=== PATIENT | female | born 1955 | race Caucasian/White ===

== ENCOUNTER 2023-11-07 13:01 | Inpatient (IN) | payer BC, MEDICAID ==
[~2023-11-07] VITALS: Ht 154.9 cm; Wt 43.5 kg
[2023-11-07 13:10] VITALS: BP_SYST 225; PULSE 75; RESP 22; TEMP 98.3; O2SAT 98
[2023-11-07] MEDS ORDERED: iohexoL 350 mgI/mL, 100 ML INFUS..BTL IV ONE (13:12)
[2023-11-07 13:56] LABS: BASOPHILS % (AUTO) 0.3 % (0.0-2.0); EOSINOPHILS # (AUTO) 0.1 K/uL (0.0-0.4); EOSINOPHILS % (AUTO) 1.4 % (0.0-4.0); HEMATOCRIT 28.8 % (36-48); HEMOGLOBIN 9.8 g/dL (12.0-16.0); LYMPHOCYTES # (AUTO) 2.1 K/uL (1.0-5.5); LYMPHOCYTES % (AUTO) 37.1 % (20.5-51.5); MEAN CORPUSCULAR HEMOGLOBIN 27 pg (27-31); MEAN CORPUSCULAR HGB CONC 34 % (32-36); MEAN CORPUSCULAR VOLUME 79 fL (79.0-98.0); MONOCYTES # (AUTO) 0.5 K/uL (0.0-1.0); NEUTROPHILS % (AUTO) 52.2 % (40.0-70.0); PLATELET COUNT (AUTO) 169 K/uL (130-430); RED BLOOD CELL COUNT(AUTO) 3.66 MIL/uL (4.2-6.2); RED CELL DISTRIBUTION WIDTH 18.6 % (9.0-15.0); WHITE BLOOD COUNT (AUTO) 5.8 K/uL (4.8-10.8)
[2023-11-07] MEDS: METOCLOPRAMIDE HCL 10 MG/2 ML VIAL IVP ONE (14:12)
[2023-11-07] MEDS: MECLIZINE HCL 25 MG TABLET (ANITVERT) PO ONE (14:12)
[2023-11-07 14:17] LABS: INR 1.1 (0.8-1.2); PROTHROMBIN TIME 11.5 SECS (9.5-12.5)
[2023-11-07 14:28] LABS: ALANINE AMINOTRANSFERASE 17 U/L (12-78); ALBUMIN 3.1 g/dL (3.4-4.8); ALCOHOL, BLOOD < 3 mg/dL (<10); ANION GAP 10 (5-15); ASPARTATE AMINOTRANSFERASE 20 U/L (10-37); BILIRUBIN,DIRECT 0.1 mg/dL (0.0-0.3); CALCIUM 8.1 mg/dL (8.4-11.0); CARBON DIOXIDE 28 mmol/L (23-29); CHLORIDE 99 mmol/L (98-107); CREATINE KINASE, TOTAL 34 U/L (26-192); CREATININE 0.56 mg/dL (0.55-1.30); GFR AFRICAN AMERICAN 139 mL/min (>90); GFR NON AFRICAN-AMERICAN 115 mL/min (>90); GLUCOSE 113 mg/dL (74-106); SODIUM SERUM 137 mmol/L (136-145); TOTAL BILIRUBIN 0.4 mg/dL (0.0-1.0); TOTAL PROTEIN, SERUM 6.1 g/dL (6.4-8.3); UREA NITROGEN, BLOOD 16 mg/dL (8-21)
[2023-11-07 14:29] LABS: POTASSIUM 2.8 mmol/L (3.5-5.1)
[2023-11-07 15:59] LABS: BILIRUBIN,URINE NEGATIVE (NEGATIVE); BLOOD, URINE NEGATIVE (NEGATIVE); CLARITY/URINE SL CLOUDY (CLEAR); COLOR,URINE YELLOW (YELLOW); GLUCOSE,URINE NEGATIVE (NEGATIVE); KETONES,URINE NEGATIVE (NEGATIVE); LEUKOCYTE ESTERASE ,URINE TRACE (NEGATIVE); NITRITE, URINE NEGATIVE (NEGATIVE); PH,URINE 7.5 (5.0-8.0); PROTEIN URINE NEGATIVE (NEGATIVE); UROBILINOGEN,URINE 0.2 (0.2-1.0)
[2023-11-07] MEDS: KCL 20 mEq in 100 mL (PREMIX) 100 ML IV ONE (16:13)
[2023-11-07 16:32] LABS: BACTERIA,URINE MODERATE /HPF (None Seen); RBC,URINE 0-3 /HPF (0-3)
[2023-11-07] MEDS ORDERED: MORPHINE 2 MG/ML INJ. SYRINGE IVP PRN (17:30)
[2023-11-07] MEDS ORDERED: ZOLPIDEM TARTRATE 5 MG TABLET PO PRN (17:30)
[2023-11-07] MEDS: NACL 0.9% 1,000 ML IV SCH (17:30)
[2023-11-07] MEDS ORDERED: DOCUSATE SODIUM 100 MG CAPSULE PO PRN (17:30)
[2023-11-07] MEDS ORDERED: MAGNESIUM SULFATE 50 ML IV PRN (17:30)
[2023-11-07] MEDS ORDERED: MUPIROCIN 2% TOPICAL OINTMENT 22 GM NS PRN (17:30)
[2023-11-07] MEDS ORDERED: TRAM50TA2 PO (18:08)
[2023-11-07] MEDS ORDERED: LEVO50CA4 (18:08)
[2023-11-07] MEDS ORDERED: GABA-529 PO (18:10)
[2023-11-07] MEDS ORDERED: PARO-147 PO (18:10)
[2023-11-07] MEDS ORDERED: MELO10CA2 (18:12)
[2023-11-07] MEDS ORDERED: SIMV-343 PO (18:12)
[2023-11-07] MEDS: ASPIRIN 81 MG TABLET(ECOTRIN) PO ONE (18:25)
[2023-11-07] MEDS: ONDANSETRON HCL 4 MG/2 ML VIAL IVP PRN (18:25)
[2023-11-07] MEDS: MORPHINE 2 MG/ML INJ. SYRINGE IVP PRN (18:58)
[2023-11-07] MEDS: METOPROLOL TARTRATE 25 MG TABLET PO SCH (20:55)
[2023-11-08] MEDS: hydrALAZINE HCL 20 MG/ML VIAL IVP PRN (02:09)
[2023-11-08] MEDS ORDERED: METOCLOPRAMIDE HCL 10 MG/2 ML VIAL ONE (02:55)
[2023-11-08] MEDS: METOCLOPRAMIDE HCL 10 MG/2 ML VIAL IVP ONE (02:57)
[2023-11-08 03:37] LABS: BASOPHILS % (AUTO) 0.2 % (0.0-2.0); EOSINOPHILS % (AUTO) 0.1 % (0.0-4.0); HEMATOCRIT 37.5 % (36-48); HEMOGLOBIN 12.6 g/dL (12.0-16.0); LYMPHOCYTES # (AUTO) 0.9 K/uL (1.0-5.5); LYMPHOCYTES % (AUTO) 12.3 % (20.5-51.5); MEAN CORPUSCULAR HEMOGLOBIN 27 pg (27-31); MEAN CORPUSCULAR HGB CONC 34 % (32-36); MEAN CORPUSCULAR VOLUME 79 fL (79.0-98.0); MONOCYTES # (AUTO) 0.3 K/uL (0.0-1.0); MONOCYTES % (AUTO) 4.7 % (1.7-9.3); NEUTROPHILS # (AUTO) 5.9 K/uL (1.8-7.7); NEUTROPHILS % (AUTO) 82.7 % (40.0-70.0); PLATELET COUNT (AUTO) 251 K/uL (130-430); RED BLOOD CELL COUNT(AUTO) 4.73 MIL/uL (4.2-6.2); RED CELL DISTRIBUTION WIDTH 18.6 % (9.0-15.0); WHITE BLOOD COUNT (AUTO) 7.2 K/uL (4.8-10.8)
[2023-11-08 03:42] LABS: CALCIUM 9.3 mg/dL (8.4-11.0); CREATININE 0.66 mg/dL (0.55-1.30); POTASSIUM 3.5 mmol/L (3.5-5.1)
[2023-11-08 08:30] VITALS: BP_SYST 131; PULSE 97; RESP 18; TEMP 98.4; O2SAT 96
[2023-11-08] MEDS: ASPIRIN 81 MG TABLET(ECOTRIN) PO SCH (09:50)
[2023-11-08] MEDS: cefTRIAXone 1 GM IVPB PREMIX 50 ML IV SCH (10:14)
[2023-11-08 12:00] VITALS: BP_SYST 167; PULSE 82; RESP 18; TEMP 98.7
[2023-11-08 12:05] VITALS: BP_SYST 131; PULSE 97; RESP 16; TEMP 98.1
[2023-11-08 16:00] VITALS: BP_SYST 165; PULSE 90; RESP 18; TEMP 98.3; O2SAT 100
[2023-11-08 20:00] VITALS: BP_SYST 168; PULSE 105; RESP 18; TEMP 99.1; O2SAT 97
[2023-11-08] MEDS: ACETAMINOPHEN 325 MG TABLET PO PRN (20:25)
[2023-11-08] MEDS: PARoxetine HCL 20 MG TABLET PO SCH (20:25)
[2023-11-08] MEDS: SIMVASTATIN 20 MG TABLET PO SCH (20:25)
[2023-11-08 20:45] VITALS: BP_SYST 140
[2023-11-08] MEDS: LORazepam 2 MG/ML VIAL IVP PRN (23:44)
[2023-11-08] MEDS: traMADol HCL HCL 50 MG TABLET (ULTRAM) PO PRN (23:44)
[2023-11-09] VITALS (7 sets, daily range): BP systolic 134–174; PULSE 82–91; RESP 16–18; TEMP 96.6–98.5; O2SAT 94–98
[2023-11-09 05:39] LABS: BASOPHILS % (AUTO) 0.1 % (0.0-2.0); HEMATOCRIT 35.4 % (36-48); HEMOGLOBIN 11.8 g/dL (12.0-16.0); LYMPHOCYTES # (AUTO) 1.3 K/uL (1.0-5.5); MEAN CORPUSCULAR HEMOGLOBIN 26 pg (27-31); MEAN CORPUSCULAR HGB CONC 33 % (32-36); MEAN CORPUSCULAR VOLUME 79 fL (79.0-98.0); MONOCYTES # (AUTO) 0.6 K/uL (0.0-1.0); MONOCYTES % (AUTO) 7.3 % (1.7-9.3); NEUTROPHILS # (AUTO) 5.8 K/uL (1.8-7.7); NEUTROPHILS % (AUTO) 75.6 % (40.0-70.0); PLATELET COUNT (AUTO) 239 K/uL (130-430); RED BLOOD CELL COUNT(AUTO) 4.46 MIL/uL (4.2-6.2); RED CELL DISTRIBUTION WIDTH 18.7 % (9.0-15.0); WHITE BLOOD COUNT (AUTO) 7.7 K/uL (4.8-10.8)
[2023-11-09 06:32] LABS: CALCIUM 8.8 mg/dL (8.4-11.0); CREATININE 0.61 mg/dL (0.55-1.30); POTASSIUM 3.2 mmol/L (3.5-5.1)
[2023-11-09] MEDS: LEVOTHYROXINE SODIUM 0.05 MG TABLET PO SCH (06:55)
[2023-11-09] MEDS: POTASSIUM CHLORIDE 40 MEQ, LIDOCAINE JECT 2% PF 100 MG 75 MG in NS 250 ML IV ONE (12:23)
[2023-11-09] MEDS ORDERED: SIMV-343 PO (13:39)
[2023-11-09] MEDS ORDERED: CHOL500052 (13:39)
[2023-11-09] MEDS ORDERED: DICL100G60 TP (13:39)
[2023-11-09] MEDS ORDERED: TRAZ-250 PO (13:39)
[2023-11-09] MEDS ORDERED: LEVO100T9 PO (13:39)
[2023-11-09] MEDS ORDERED: ALPR0.5T8 (13:39)
[2023-11-09] MEDS ORDERED: METF-379 PO (14:28)
[2023-11-09] MEDS ORDERED: LOSARTAN POTASSIUM 25 MG TABLET PO SCH (15:30)
[2023-11-09] MEDS ORDERED: hydrALAZINE HCL 20 MG/ML VIAL IVP PRN (15:30)
[2023-11-09] MEDS ORDERED: LABETALOL HCL 20 MG/4 ML CARTRIDGE IVP PRN (15:30)
[2023-11-09] MEDS: NIFEdipine 30 MG TAB.ER.24 PO ONE (16:31)
[2023-11-09] MEDS ORDERED: ATORVASTATIN 20 MG TABLET PO SCH (21:00)
[2023-11-09] MEDS: LOSARTAN POTASSIUM 25 MG TABLET PO SCH (21:16)
[2023-11-10] VITALS: BP_SYST 131; PULSE 89; RESP 18; TEMP 99.2; O2SAT 93
[2023-11-10 05:02] LABS: BASOPHILS % (AUTO) 0.2 % (0.0-2.0); EOSINOPHILS % (AUTO) 0.1 % (0.0-4.0); HEMATOCRIT 34.8 % (36-48); HEMOGLOBIN 11.5 g/dL (12.0-16.0); LYMPHOCYTES # (AUTO) 1.7 K/uL (1.0-5.5); LYMPHOCYTES % (AUTO) 22.7 % (20.5-51.5); MEAN CORPUSCULAR HEMOGLOBIN 26 pg (27-31); MEAN CORPUSCULAR HGB CONC 33 % (32-36); MEAN CORPUSCULAR VOLUME 79 fL (79.0-98.0); MONOCYTES # (AUTO) 0.6 K/uL (0.0-1.0); MONOCYTES % (AUTO) 7.7 % (1.7-9.3); NEUTROPHILS # (AUTO) 5.2 K/uL (1.8-7.7); NEUTROPHILS % (AUTO) 69.3 % (40.0-70.0); PLATELET COUNT (AUTO) 231 K/uL (130-430); RED BLOOD CELL COUNT(AUTO) 4.39 MIL/uL (4.2-6.2); RED CELL DISTRIBUTION WIDTH 18.6 % (9.0-15.0); WHITE BLOOD COUNT (AUTO) 7.6 K/uL (4.8-10.8)
[2023-11-10 05:31] LABS: CALCIUM 8.6 mg/dL (8.4-11.0); CREATININE 0.47 mg/dL (0.55-1.30)
[2023-11-10] MEDS: LEVOTHYROXINE SODIUM 0.05 MG TABLET PO SCH (06:05)
[2023-11-10 06:10] LABS: POTASSIUM 2.9 mmol/L (3.5-5.1)
[2023-11-10] MEDS: KCL 20 mEq in 100 mL (PREMIX) 200 ML IV ONE (06:58)
[2023-11-10 08:00] VITALS: BP_SYST 145; PULSE 91; RESP 18; TEMP 97.3; O2SAT 96
[2023-11-10] MEDS: NIFEdipine 30 MG TAB.ER.24 PO SCH (09:15)
[2023-11-10] MEDS: ATORVASTATIN 20 MG TABLET PO SCH (09:15)
[2023-11-10 12:30] VITALS: BP_SYST 149; PULSE 88; RESP 18; TEMP 97.2
[2023-11-10 16:22] VITALS: BP_SYST 145; PULSE 105; RESP 20; TEMP 100.3; O2SAT 94
[2023-11-10] MEDS: CLOPIDOGREL BISULFATE 75 MG TABLET PO ONE (17:47)
[2023-11-10] MEDS: ACETAMINOPHEN 500 MG TABLET PO PRN (17:52)
[2023-11-10] MEDS: SCOPOLAMINE HYDROBROMIDE 1 MG PATCH .72 H (TRANSDERM-SCOP) TD SCH (18:21)
[2023-11-10 20:00] VITALS: BP_SYST 117; PULSE 96; RESP 20; TEMP 98.6; O2SAT 95
[2023-11-11] VITALS (7 sets, daily range): BP systolic 109–157; PULSE 67–109; RESP 18–20; TEMP 97.8–99.5; O2SAT 95–99
[2023-11-11 05:36] LABS: BASOPHILS % (AUTO) 0.3 % (0.0-2.0); EOSINOPHILS # (AUTO) 0.1 K/uL (0.0-0.4); EOSINOPHILS % (AUTO) 0.7 % (0.0-4.0); HEMATOCRIT 34.9 % (36-48); HEMOGLOBIN 11.8 g/dL (12.0-16.0); LYMPHOCYTES # (AUTO) 2.6 K/uL (1.0-5.5); LYMPHOCYTES % (AUTO) 34.9 % (20.5-51.5); MEAN CORPUSCULAR HEMOGLOBIN 27 pg (27-31); MEAN CORPUSCULAR HGB CONC 34 % (32-36); MEAN CORPUSCULAR VOLUME 79 fL (79.0-98.0); MONOCYTES # (AUTO) 0.7 K/uL (0.0-1.0); MONOCYTES % (AUTO) 9.2 % (1.7-9.3); NEUTROPHILS # (AUTO) 4.1 K/uL (1.8-7.7); NEUTROPHILS % (AUTO) 54.9 % (40.0-70.0); PLATELET COUNT (AUTO) 244 K/uL (130-430); RED BLOOD CELL COUNT(AUTO) 4.42 MIL/uL (4.2-6.2); RED CELL DISTRIBUTION WIDTH 18.1 % (9.0-15.0); WHITE BLOOD COUNT (AUTO) 7.4 K/uL (4.8-10.8)
[2023-11-11 05:52] LABS: CALCIUM 8.5 mg/dL (8.4-11.0); CREATININE 0.49 mg/dL (0.55-1.30)
[2023-11-11 05:58] LABS: POTASSIUM 2.6 mmol/L (3.5-5.1)
[2023-11-11] MEDS: POTASSIUM CHLORIDE 20 MEQ TABLET.ER PO PRN (06:12)
[2023-11-11] MEDS: ONDANSETRON HCL 4 MG/2 ML VIAL IM PRN (06:30)
[2023-11-11] MEDS: CLOPIDOGREL BISULFATE 75 MG TABLET PO SCH (08:39)
[2023-11-11] MEDS: MECLIZINE HCL 25 MG TABLET (ANITVERT) PO PRN (08:51)
[2023-11-11] MEDS ORDERED: KCL 40 mEq in 100 mL (PREMIX) 100 ML IV ONE (10:15)
[2023-11-11] MEDS: POTASSIUM CHLORIDE 40 MEQ in NS 250 ML IV ONE (11:39)
[2023-11-11] MEDS: POTASSIUM CHLORIDE 20 MEQ/PKT PACKET PO ONE (11:39)
[2023-11-11] MEDS ORDERED: SYN50 PO (12:00)
[2023-11-11] MEDS ORDERED: NIFEdipine PO (12:00)
[2023-11-11] MEDS ORDERED: ONDA4VIA52 IM (12:00)
[2023-11-11] MEDS ORDERED: HYDR25TA86 PO (12:00)
[2023-11-11] MEDS ORDERED: ZOLP5TAB2 PO (12:00)
[2023-11-11] MEDS ORDERED: CLOP75TA32 PO (12:00)
[2023-11-11] MEDS ORDERED: LIP20 PO (12:00)
[2023-11-11] MEDS ORDERED: TRAM50TA2 PO (12:00)
[2023-11-11] MEDS ORDERED: LOSA-412 PO (12:00)
[2023-11-11] MEDS ORDERED: REGI10 IVP (12:00)
[2023-11-11] MEDS ORDERED: Aspirin Ec PO (12:00)
[2023-11-11] MEDS ORDERED: MECL-292 PO (12:00)
[2023-11-11] MEDS ORDERED: ACET325T PO (12:00)
[2023-11-11] MEDS ORDERED: ACET-2634 PO (12:00)
[2023-11-11] MEDS ORDERED: SCOPOLAMINE HYDROBROMIDE TD (12:00)
[2023-11-11] MEDS ORDERED: DOCU-144 PO (12:00)
[2023-11-12 00:34] VITALS: BP_SYST 143; PULSE 105; RESP 17; TEMP 98.4; O2SAT 95
[2023-11-12 06:39] LABS: BASOPHILS % (AUTO) 0.4 % (0.0-2.0); EOSINOPHILS % (AUTO) 0.7 % (0.0-4.0); HEMATOCRIT 36.7 % (36-48); HEMOGLOBIN 12.4 g/dL (12.0-16.0); LYMPHOCYTES # (AUTO) 1.8 K/uL (1.0-5.5); LYMPHOCYTES % (AUTO) 28.4 % (20.5-51.5); MEAN CORPUSCULAR HEMOGLOBIN 26 pg (27-31); MEAN CORPUSCULAR HGB CONC 34 % (32-36); MEAN CORPUSCULAR VOLUME 78 fL (79.0-98.0); MONOCYTES # (AUTO) 0.6 K/uL (0.0-1.0); MONOCYTES % (AUTO) 9.9 % (1.7-9.3); NEUTROPHILS # (AUTO) 3.9 K/uL (1.8-7.7); NEUTROPHILS % (AUTO) 60.6 % (40.0-70.0); PLATELET COUNT (AUTO) 251 K/uL (130-430); RED CELL DISTRIBUTION WIDTH 18.4 % (9.0-15.0); WHITE BLOOD COUNT (AUTO) 6.5 K/uL (4.8-10.8)
[2023-11-12 07:10] LABS: CALCIUM 8.7 mg/dL (8.4-11.0); CREATININE 0.44 mg/dL (0.55-1.30); POTASSIUM 3.2 mmol/L (3.5-5.1)
[2023-11-12 08:00] VITALS: O2SAT 99
[2023-11-12] MEDS: hydrALAZINE HCL 25 MG TABLET PO PRN (09:06)
[2023-11-12 12:26] VITALS: BP_SYST 194; PULSE 123; RESP 20; TEMP 98.9; O2SAT 95
[2023-11-12] MEDS: LOSARTAN POTASSIUM 25 MG TABLET PO ONE (13:17)
[2023-11-12] MEDS: MECLIZINE HCL 25 MG TABLET (ANITVERT) PO ONE (15:54)
[2023-11-12 17:07] VITALS: BP_SYST 192; PULSE 121; RESP 20; TEMP 99.3; O2SAT 96
[2023-11-12] MEDS: METOCLOPRAMIDE HCL 10 MG/2 ML VIAL IVP PRN (18:18)
[2023-11-12 19:00] VITALS: O2SAT 99
[2023-11-12 20:00] VITALS: BP_SYST 181; PULSE 117; RESP 20; TEMP 99; O2SAT 97
[2023-11-12] MEDS: MECLIZINE HCL 25 MG TABLET (ANITVERT) PO SCH (20:54)
[2023-11-12] MEDS: LOSARTAN POTASSIUM 25 MG TABLET PO SCH (20:55)
[2023-11-12] MEDS ORDERED: LOSARTAN POTASSIUM 25 MG TABLET PO SCH (21:00)
[2023-11-13 00:37] VITALS: BP_SYST 153; PULSE 117; RESP 16; TEMP 97.8; O2SAT 96
[2023-11-13 05:33] LABS: BASOPHILS % (AUTO) 0.5 % (0.0-2.0); EOSINOPHILS # (AUTO) 0.1 K/uL (0.0-0.4); EOSINOPHILS % (AUTO) 2.1 % (0.0-4.0); HEMATOCRIT 39.3 % (36-48); HEMOGLOBIN 13.1 g/dL (12.0-16.0); LYMPHOCYTES # (AUTO) 2.2 K/uL (1.0-5.5); MEAN CORPUSCULAR HEMOGLOBIN 26 pg (27-31); MEAN CORPUSCULAR HGB CONC 33 % (32-36); MEAN CORPUSCULAR VOLUME 79 fL (79.0-98.0); MONOCYTES # (AUTO) 0.7 K/uL (0.0-1.0); MONOCYTES % (AUTO) 10.3 % (1.7-9.3); NEUTROPHILS # (AUTO) 3.7 K/uL (1.8-7.7); NEUTROPHILS % (AUTO) 54.1 % (40.0-70.0); PLATELET COUNT (AUTO) 301 K/uL (130-430); RED BLOOD CELL COUNT(AUTO) 5.01 MIL/uL (4.2-6.2); RED CELL DISTRIBUTION WIDTH 18.1 % (9.0-15.0); WHITE BLOOD COUNT (AUTO) 6.8 K/uL (4.8-10.8)
[2023-11-13 06:05] LABS: ALBUMIN 3.6 g/dL (3.4-4.8); CALCIUM 9.3 mg/dL (8.4-11.0); CREATININE 0.69 mg/dL (0.55-1.30); POTASSIUM 3.5 mmol/L (3.5-5.1); TOTAL BILIRUBIN 0.9 mg/dL (0.0-1.0); TOTAL PROTEIN, SERUM 7.4 g/dL (6.4-8.3)
[2023-11-13 08:00] VITALS: BP_SYST 184; PULSE 110; PULSE 91; RESP 18; TEMP 97.8; O2SAT 95
[2023-11-13] MEDS: METOPROLOL TARTRATE 25 MG TABLET PO ONE (09:01)
[2023-11-13] MEDS ORDERED: MORPHINE 2 MG/ML INJ. SYRINGE IVP PRN ×3 (10:30)
[2023-11-13] MEDS ORDERED: NALOXONE HCL 0.4 MG/ML AMP (NARCAN) IVP PRN (10:30)
[2023-11-13] MEDS ORDERED: hydrALAZINE HCL 20 MG/ML VIAL IVP PRN (10:30)
[2023-11-13 13:18] VITALS: BP_SYST 100; PULSE 98; RESP 19; TEMP 99.7; O2SAT 91
[2023-11-13 13:42] VITALS: BP_SYST 120; PULSE 96; RESP 16; TEMP 97.6
[2023-11-13] MEDS ORDERED: METOPROLOL TARTRATE 25 MG TABLET PO SCH (21:00)
== END 2023-11-13 14:25 | DRG 65 ==
LOC: SED 13:01 → SMU 17:36 → STU 11-08 08:10 → SMU 11-10 15:49
PROVIDERS: ADMIT General Practice; ATTEND General Practice
DX: I63.541 Cerebral infarction due to unspecified occlusion or stenosis of right cerebellar artery (principal); E87.20 Acidosis, unspecified; R65.10 Systemic inflammatory response syndrome (SIRS) of non-infectious origin without acute organ dysfunction; E87.6 Hypokalemia; R29.701 NIHSS score 1; E11.9 Type 2 diabetes mellitus without complications; E78.5 Hyperlipidemia, unspecified; I10 Essential (primary) hypertension; Z85.850 Personal history of malignant neoplasm of thyroid; Z79.899 Other long term (current) drug therapy; I69.398 Other sequelae of cerebral infarction; R26.89 Other abnormalities of gait and mobility
CPT/HCPCS: 36415; 70450-TC; 70496; 70498; 70551; 72110; 73521; 80048; 80053; 80061; 80076; 81000; 81001; 81015; 82550; 83037; 83605; 83735; 84132; 84484; 85025; 85610; 85730; 87086; 93005; 93306; 96374; 96375; 97110-GP; 97112-GP; 97530-GP; 99285; G0378; G0482; J0360; J0696; J2060; J2270; J2405; J2765; J3480; J7050; J8597; Q9967